=== PATIENT | male | born 1965 | race Caucasian/White ===

== ENCOUNTER 2024-03-11 06:25 | Inpatient (IN) ==
--- NOTE | 2024-03-01 15:33 | PAT Medication Instructions ---
Medication Instructions Date of Service March 01, 2024 Home Medications Medical Marijuana 1 unit inhalation UD PRN Pain (Scale Score 1-3) aspirin 81 mg capsule 81 mg PO QPM atorvastatin 40 mg tablet 20 mg PO QPM ASK your prescriber and surgeon aspirin 81 mg capsule 81 mg PO QPM DO NOT take the morning of surgery Medical Marijuana 1 unit inhalation UD PRN Pain (Scale Score 1-3) Take evening before surgery atorvastatin 40 mg tablet 20 mg PO QPM Medical Marijuana 1 unit inhalation UD PRN Pain (Scale Score 1-3) (if needed) OTHERWISE NOTHING TO EAT OR DRINK AFTER MIDNIGHT Other Notes If you have any questions please call us at [phone] or [phone] or [phone] or [phone]
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
[~2024-03-11 06:25] MED LIST: SODIUM CHLORIDE 0.9% 250 ML IV PRN
[2024-03-11 07:15] LABS: BUN Creatinine Ratio 12.4 (10-20); Calcium 9.1 mg/dl (8.6-10.3); Creatinine Clr Calc Pharmacy 92.8 ml/min; Potassium 3.8 mmol/L (3.5-5.1)
--- NOTE | 2024-03-11 07:29 | History & Physical Bridge Note ---
Date of Service March 11, 2024 History & Physical Bridge Note I have examined the patient, reviewed the History & Physical and in the interval since the performance of the History & Physical I have noted the following changes of clinical significance: no changes noted
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
[2024-03-11] MEDS ORDERED: MIDAZOLAM HCL 1 MG/ML 2ML VIAL ONE (07:39)
[2024-03-11] MEDS ORDERED: fentaNYL citrate PF 100 MCG/2 ML VIAL ONE ×4 (07:39→10:00)
[2024-03-11] MEDS ORDERED: CISATRACURIUM BESYLATE IV SOLN 2 MG/ML 10 ML VIAL IV ONE (07:39)
[2024-03-11] MEDS ORDERED: PROPOFOL IV EMULSION 10 MG/ML 20 ML VIAL IV ONE (07:39)
[2024-03-11] MEDS: ceFAZolin 2000MG 2,000 MG/15 ML SYR IV SCH ×2 (08:52→17:58)
[2024-03-11] MEDS ORDERED: SUCCINYLCHOLINE 100MG/5ML SYR IV ONE (09:09)
[2024-03-11] MEDS: SURGICEL ABSORB HEMOSTAT 2IN X 14IN TOP ONE (09:21)
[2024-03-11] MEDS ORDERED: HEPARIN SOD (PORCINE) 1000 UNIT/ML ONE ×2 (10:36→13:31)
[2024-03-11] MEDS ORDERED: HYDROmorphone INJ 2 MG/ML SYR/VIAL ONE (10:58)
[2024-03-11] MEDS: GELATIN SPONGE SZ 100 ONE (12:17)
[2024-03-11] MEDS: BUPIVACAINE/EPINEPHRINE 0.5% MPF 1:200,000 30 ML VIAL ONE (12:17)
[2024-03-11] MEDS: LIDOCAINE 1% LOCAL 20 ML VIAL ONE (12:17)
[2024-03-11] MEDS: ceFAZolin 330 MG/ML 1 GM VIAL ONE (12:43)
[2024-03-11] MEDS: HEPARIN (PORCINE) 1000 UNIT/ML 10 ML (CATH LAB USE ONLY) ONE (12:44)
[2024-03-11] MEDS: THROMBIN FOR SOLN 20000 UNIT KIT ONE (12:45)
--- NOTE | 2024-03-11 12:52 | Post Operative Brief Note ---
Immediate Post Op Note Date of Surgery March 11, 2024 Pre & Post Diagnosis Operation Date: 03/11/24 08:00 Pre-Op Diagnosis: Aortoiliac occlusive disease with claudication; Peripheral arterial disease with claudication Post-Op Diagnosis: Aortoiliac occlusive disease with claudication; Peripheral arterial disease with claudication I identified the patient and participated in the time-out.: Yes Procedure Operation Date: 03/11/24 08:00 Actual Procedures p Percutaneous Transluminal Angioplasty Stenting Right External Iliac Artery, Bilateral Femoral to Above Knee Popliteal Prostethic Bypass(Bilateral) - Urban Golden MD Surgeon Urban Golden MD Legal Billing Coordinator MD Thalia L.Minarchick,PAC Estimated Blood Loss 125 Findings Consistent with Post-Op Diagnosis Drains Jackson Catheter Anesthesia Type General Complications none Disposition Accompanied Patient To Recovery: No Disposition: Recovery Room
[2024-03-11] MEDS: VISIPAQUE IV PRN (12:55)
[2024-03-11] MEDS ORDERED: GLYCOPYRROLATE 0.2 MG/ML VIAL ONE (12:56)
[2024-03-11] MEDS ORDERED: NEOSTIGMINE METHYLSULFATE 1 MG/ML 10ML VIAL ONE (12:56)
--- NOTE | 2024-03-11 13:38 | Operative Report ---
Post Operative Report Pre & Post Diagnosis Operation Date: 03/11/24 08:00 Pre-Op Diagnosis: Aortoiliac occlusive disease with claudication; Peripheral arterial disease with claudication Post-Op Diagnosis: Aortoiliac occlusive disease with claudication; Peripheral arterial disease with claudication I identified the patient and participated in the time-out.: Yes Procedure Operation Date: 03/11/24 08:00 Actual Procedures p Percutaneous Transluminal Angioplasty Stenting Right External Iliac Artery, Bilateral Femoral to Above Knee Popliteal Prostethic Bypass(Bilateral) - Urban Golden MD Surgeon Urban Golden MD Barrel Planer MD Vini Vásquez,PAC Estimated Blood Loss 125 Findings Consistent with Post-Op Diagnosis Severe stenosis of the right external iliac artery. Bilateral SFA occlusions with reconstitution of the above knee popliteal artery Specimens None Anesthesia Type General Complications None Disposition Accompanied Patient To Recovery: No Indications Oswald Hall is a pleasant 58 year old male with PMH of PAD and severe lifestyle limiting claudication and inability to walk more than 20 feet due to pain. During an aortogram several weeks ago he was found to have bilateral SFA occlusions, long segment, not suitable to endovascular intervention. After discussion of the risks and benefits the patient elected to pursue the above mentioned procedure Description of Procedure The patient was taken to the operating room and placed in the supine position. General endotracheal anesthesia was induced. The bilateral groin and bilateral leg were prepped and draped circumferentially in the usual sterile fashion. A time-out was performed. A longitudinal incision was made over the right common femoral artery with a #15 blade scalpel. Dissection was carried down through subcutaneous tissue using electrocautery followed by Metzenbaum scissions and the common femoral artery was identified. The right common femoral artery, right profunda femoris, and right SFA were controlled. A longitudinal incision was made over the left common femoral artery with a #15 blade scalpel. Dissection was carried down through subcutaneous tissue using electrocautery followed by Metzenbaum scissions and the common femoral artery was identified. The left common femoral artery, left profunda femoris, and left SFA were controlled. Using micropuncture technique, a micropuncture sheath followed by a 5Fr sheath was advanced into the left common femoral artery. A Pigtail catheter was advanced to the level of the infrarenal aorta. An aortogram was performed demonstrating severe stenosis of the right external iliac artery. The right common femoral artery was then accessed with a micropuncture needle and a 8Fr sheath was positioned. The lesion in the right external iliac was then covered using a 8mm x 60mm stent. This was then ballooned with a 8mm x 60mm balloon to 12 levon. Completion angiogram demonstrated adequate deployment. A longitudinal incision was made over the right above knee popliteal artery with a #15 blade scalpel. Dissection was carried down through subcutaneous tissue using electrocautery followed by Metzenbaum scissions and the above knee popliteal artery was identified. It was dissected free and controlled circumferentially proximally and distally. A longitudinal incision was made over the left above knee popliteal artery with a #15 blade scalpel. Dissection was carried down through subcutaneous tissue using electrocautery followed by Metzenbaum scissions and the above knee pop liteal artery was identified. It was dissected free and controlled circumferentially proximally and distally. The right and left tunnel were created anatomically and a 6mm rPTFE graft was passed through each tunnel bilaterally. Patient was systemically heparinized with a goal ACT of > 200. Following heparin administration the left common femoral, SFA, and profunda arteries were clamped in order. The proximal anastomosis on the left was completed using running 6-0 Prolene suture to the left HEATING SYSTEMS INSTALLER. The distal anastomosis was then completed as well. Adequate flushing was performed prior to completion demonstrating generous backbleeding. All vessels were unclamped. Following completion, the left bypass was hemostatic. There was a good pulse in the bypass and in the left foot. The Right common femoral, SFA, and profunda arteries were clamped in order. The proximal anastomosis on the right was completed using running 6-0 Prolene suture to the right HEATING SYSTEMS INSTALLER. The distal anastomosis was then completed as well. Adequate flushing was performed prior to completion demonstrating generous backbleeding. Following completion, the right bypass was hemostatic. There was a good pulse in the bypass and in the right foot. At completion, vessels were unclamped and there was an excellent Doppler signal throughout the proximal and distal bypass as well as the foot. The wounds were closed with interrupted 2-0 Vicryl sutures followed by 3-0 running subcutaneous Vicryl sutures. The skin was closed with ale. Patient awoke without complications and tolerated the procedure well Dr. Golden was present and scrubbed for the entire procedure. I attest to the content of the Intraoperative Record and any orders documented therein. Any exceptions are noted below. Supervising Physician Co-Signing Physician Notes Urban Golden MD
[2024-03-11] MEDS ORDERED: NALOXONE HCL 0.4 MG/1 ML VIAL/CARP IV PRN (13:45)
[2024-03-11] MEDS: HYDROmorphone INJ 1 MG/ML SYRINGE IV PRN (13:45)
[2024-03-11] MEDS ORDERED: ePHEDrine sulfate 50 MG/ML AMP IV PRN (13:45)
[2024-03-11] MEDS ORDERED: ONDANSETRON INJ 2 MG/ML 2 ML VIAL IV PRN (13:45)
[2024-03-11] MEDS ORDERED: LABETALOL HCL IV 5 MG/ML 20ML IV PRN (13:45)
[2024-03-11] MEDS ORDERED: fentaNYL citrate PF 100 MCG/2 ML VIAL IV PRN (13:45)
[2024-03-11] MEDS ORDERED: PROMETHAZINE HCL 6.25 MG in SODIUM CHLORIDE 0.9% 50 ML IV PRN (13:45)
[2024-03-11] MEDS ORDERED: ATROPINE SULFATE 0.1 MG/ML 10ML SYR IV PRN (13:45)
[2024-03-11] MEDS ORDERED: FLUMAZENIL 0.1 MG/1 ML 10 ML VIAL IV PRN (13:45)
[2024-03-11 14:17] LABS: Basophils # (auto) 0.03 K/uL (0.00-0.20); Basophils % (auto) 0.3 %; Hemoglobin 11.9 g/dl (14.0-18.0); Immature Granulocytes # (auto) 0.04 K/uL (0.01-0.20); Immature Granulocytes % (auto) 0.4 %; Lymphocytes # (auto) 2.34 K/uL (1.20-3.40); Lymphocytes % (auto) 24.5 %; Mean Corpuscular Hemoglobin 33.6 pg (25.0-34.0); Mean Platelet Volume 10.1 fL (9.4-12.4); Monocytes # (auto) 0.58 K/uL (0.11-0.59); Monocytes % (auto) 6.1 %; Neutrophils # (auto) 6.45 K/uL (1.40-6.50); Neutrophils % (auto) 67.7 %; Platelet Count 144 K/uL (130-400); RDW Coefficient of Variation 13.1 % (11.5-14.5); RDW Standard Deviation 45.6 fL (36.4-46.3); Red Blood Count 3.54 M/uL (4.70-6.10); White Blood Count 9.54 K/ul (4.8-10.8)
--- NOTE | 2024-03-11 15:13 | Anesthesiology Progress Note ---
Date of Service March 11, 2024 Anesthesia Post Procedure Vital Signs Vital Signs: Temp Pulse Pulse Resp BP BP BP 03/11/24 14:45 63 13 123/60 03/11/24 14:35 66 12 120/55 L 03/11/24 14:25 75 13 118/58 L 03/11/24 14:15 59 L 15 106/53 L 03/11/24 14:05 58 L 14 103/50 L 03/11/24 13:55 70 12 118/54 L 03/11/24 13:45 93 H 14 144/64 H 03/11/24 13:35 96.8 F L 81 21 138/59 L 129/86 03/11/24 06:55 03/11/24 06:55 97.9 F 83 18 136/90 156/85 H Pulse Ox O2 Del Method O2 Flow Rate 03/11/24 14:45 100 Nasal Cannula 2 03/11/24 14:35 96 Nasal Cannula 2 03/11/24 14:25 98 Oxymask 2 03/11/24 14:15 100 Oxymask 4 03/11/24 14:05 100 Oxymask 4 03/11/24 13:55 97 Oxymask 6 03/11/24 13:45 99 Oxymask 8 03/11/24 13:35 100 Oxymask 8 03/11/24 06:55 Room Air 03/11/24 06:55 97 Room Air Pain Intensity Back: Pain Intensity: 6 Left Leg: Pain Intensity: 4 Transfer of Care Handoff Completed per policy Notes Mental Status: alert / awake / arousable and participated in evaluation Patient Amnestic to Procedure: Yes Nausea / Vomiting: adequately controlled Pain: adequately controlled Airway Patency, RR, SpO2: stable & adequate BP & HR: stable & adequate Hydration State: stable & adequate Anesthetic Complications: no major complications apparent and Pt Satisfied with anesthetic care
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
[2024-03-11] MEDS: MoRPHine SULFATE 4 MG/ML 1 ML CARP\\VIAL IV PRN (17:56)
[2024-03-11] MEDS: ATORVASTATIN 20 MG TAB PO SCH (21:18)
[2024-03-11] MEDS: ASPIRIN 81 MG ECTAB PO SCH (21:18)
[2024-03-11] MEDS: oxyCODONE/ACETAMINOPHEN 5mg/325mg TAB PO PRN (21:19)
[2024-03-11] MEDS: LACTATED RINGER'S 1,000 ML IV SCH (22:26)
[2024-03-12 05:10] LABS: Basophils # (auto) 0.02 K/uL (0.00-0.20); Basophils % (auto) 0.3 %; Eosinophils # (auto) 0.09 K/uL (0.00-0.50); Eosinophils % (auto) 1.3 %; Hematocrit (blood only) 29.9 % (42.0-52.0); Hemoglobin 10.7 g/dl (14.0-18.0); Immature Granulocytes # (auto) 0.02 K/uL (0.01-0.20); Immature Granulocytes % (auto) 0.3 %; Lymphocytes # (auto) 1.65 K/uL (1.20-3.40); Lymphocytes % (auto) 23.3 %; Mean Corpuscular Hemoglobin 34.2 pg (25.0-34.0); Mean Corpuscular Hgb Conc 35.8 g/dL (32.0-36.0); Mean Corpuscular Volume 95.5 fL (80.0-100.0); Mean Platelet Volume 10.7 fL (9.4-12.4); Monocytes # (auto) 0.51 K/uL (0.11-0.59); Monocytes % (auto) 7.2 %; Neutrophils # (auto) 4.79 K/uL (1.40-6.50); Neutrophils % (auto) 67.6 %; Platelet Count 138 K/uL (130-400); RDW Coefficient of Variation 13.1 % (11.5-14.5); RDW Standard Deviation 45.3 fL (36.4-46.3); Red Blood Count 3.13 M/uL (4.70-6.10); White Blood Count 7.08 K/ul (4.8-10.8)
[2024-03-12 05:16] LABS: Calcium 8.3 mg/dl (8.6-10.3); Creatinine Clr Calc Pharmacy 110.1 ml/min; Potassium 3.6 mmol/L (3.5-5.1)
[2024-03-12 08:38] VITALS: TEMP 98.4
--- NOTE | 2024-03-12 10:16 | Surgery Progress Note ---
Date of Service March 12, 2024 Assessment & Plan (1) Superficial femoral artery occlusion: Plan: Pt now POD #1 after BLE fem-AK pop prosthetic bypasses. Doing well post op. Pt wishes to go home, however, recommended 1 more night in hospital. Pt has not yet ambulated, and his marcano catheter has not been removed. Also hgb is decreased to 10 from 14 preop. Pt asymptomatic, but would like to reeval tomorrow AM. If labs acceptable, pt voids and ambulates today, will d/c home tomorrow. Pt agreeable to this plan. (2) Iliac artery stenosis, right: Plan: Now s/p R external iliac artery stent. See above. Admission and Anticipated Discharge Date Admission Date: March 11, 2024 Subjective 58 yo m POD #1 after BL fem-AK pop prosthetic BPG and R external iliac stent, seen in f/u today. Pt states feeling generally well, just tired and some discomfort from marcano catheter. Has not been OOB yet. Wishes to go home. No other complaints. Taking PO well, pain controlled. Review of Systems Review of Systems: All systems reviewed & are unremarkable except as noted in HPI & below Physical Exam Constitutional: WD/WN, vitals as above cooperative; not in distress Respiratory: normal respiratory effort, lungs clear to auscultation Auscultation: + diminished lung sounds Cardiovascular: Rate/Rhythm: regular rate and regular rhythm Vessels: posterior tibial pulses present (+2 BLE) and dorsalis pedis pulses present (+1 RLE, +3 LLE); + abnormal peripheral pulses Extremities: normal capillary refill Gastrointestinal (Abdomen): Inspection/Auscultation: abdomen normal to inspection and normal bowel sounds Percussion/Palpation: abdomen soft; abdomen nontender Musculoskeletal: no cyanosis or clubbing, extremities motor strength 5/5 Skin: no rashes, warm and dry + incision (groin and lower thigh incisions C/D/I with staple. ) Neurologic: moves all extremities and awake; no focal motor deficits and not confused Psychiatric: A+Ox3, euthymic affect Results & Data Vital Signs (Past 12 Hours) Vital Signs Temp Pulse Resp Pulse Ox Pulse Ox O2 Del Method O2 Del Method 03/12/24 08:18 67 17 94 Room Air 03/12/24 08:00 36.9 C 03/12/24 07:36 Room Air 03/12/24 07:00 68 16 95 03/12/24 05:09 62 11 L 98 03/12/24 04:27 58 L 11 L 95 03/12/24 03:06 59 L 15 97 03/12/24 02:09 54 L 18 97 03/12/24 01:12 66 15 98 03/12/24 00:00 54 L 11 L 98 03/11/24 23:59 95 Room Air 03/11/24 23:42 91 H 17 96 03/11/24 23:00 60 11 L 99 03/11/24 22:33 87 15 97
--- NOTE | 2024-03-12 17:17 | Critical Care Progress Note ---
Date of Service March 12, 2024 Assessment & Plan (1) Peripheral vascular disease: (2) Hypertension: Plan 58-year-old male postop day 1 status post bilateral femoral popliteal bypass surgery. Patient is doing well. He has had a drop in his hemoglobin likely hemodilutional. No hemodynamic issues at present. Pain is well-controlled. No critical care needs at this time. ICU services to sign off. Thank you for the consult. Admission and Anticipated Discharge Date Admission Date: March 11, 2024 Subjective Patient postop day #1 after bilateral femoropopliteal prosthetic bypass. Notes some mild abdominal pain and decreased appetite. Overall he is doing well and desires to go home. Denies any fevers or chills. Seen by vascular surgery millicent ma today. Her line has been removed. Review of Systems Review of Systems: All systems reviewed & are unremarkable except as noted in HPI & below Physical Exam Physical Exam: Constitutional: Patient appears to be of their stated age. Patient is in no apparent distress. Patient is well-developed. Eyes: Pupils are equal round and reactive to light. Conjunctivae are normal. Anicteric sclera. Ears nose, mouth and throat: Deferred. Neck: Trachea is midline. Visual inspection is normal. Respiratory: Clear to auscultation bilaterally. No use of accessory muscles. No significant clubbing noted. Cardiovascular: Regular rate and rhythm. No murmurs. Distal pulses intact based on Doppler. Gastrointestinal: Abdomen is firm and tense. Minimal bowel sounds. Musculoskeletal: No cyanosis. Patient is able to move all extremities. Strength is 5 out of 5 in the upper and lower extremities. Skin: No rashes, warm dry and intact. Neurologic: No obvious focal neurological deficits seen. Psychiatric: Alert and oriented x3 with a euthymic affect. Results & Data Results & Data Vital Signs (Past 12 Hours) Vital Signs Temp Pulse Resp BP Pulse Ox O2 Del Method O2 Del Method 03/12/24 16:35 36.9 C 03/12/24 16:18 91 H 20 93 Room Air 03/12/24 16:00 139/78 03/12/24 16:00 Room Air 03/12/24 15:54 89 15 96 Room Air 03/12/24 15:00 111/69 03/12/24 15:00 111/69 03/12/24 15:00 61 14 03/12/24 14:03 52 L 19 99 03/12/24 14:00 111/76 03/12/24 14:00 111/76 03/12/24 13:51 64 9 L 100 03/12/24 13:06 56 L 17 97 03/12/24 13:00 120/75 03/12/24 13:00 120/75 03/12/24 13:00 120/75 03/12/24 12:57 91 H 18 98 03/12/24 12:15 36.8 C 03/12/24 12:09 88 18 151/81 H 94 Room Air 03/12/24 11:32 137/74 03/12/24 11:32 137/74 03/12/24 11:21 59 L 22 03/12/24 10:24 140/92 03/12/24 10:18 76 15 03/12/24 10:00 81 23 98 03/12/24 09:06 68 16 97 03/12/24 08:18 67 17 94 Room Air 03/12/24 08:00 36.9 C 03/12/24 07:36 Room Air 03/12/24 07:00 68 16 95 Coding Level of Care Code 41273 SUB INP/OBS CARE 06/15MIN Diagnoses Peripheral vascular disease I73.9 Hypertension I10
[2024-03-13 08:11] VITALS: RESP 13; O2SAT 94
[2024-03-13 08:37] LABS: Hematocrit (blood only) 30.5 % (42.0-52.0)
[2024-03-13 08:51] VITALS: BP 129/86; PULSE 60
--- NOTE | 2024-03-13 10:40 | Surgery Progress Note ---
Date of Service March 13, 2024 Assessment & Plan (1) Superficial femoral artery occlusion: Plan: Pt now POD #2 after BLE fem-AK pop prosthetic bypasses. Doing well post op. OK for d/c home today. (2) Iliac artery stenosis, right: Plan: Now s/p R external iliac artery stent. See above. Admission and Anticipated Discharge Date Admission Date: March 11, 2024 Subjective 58 yo m POD #2 after BL fem-AK pop bypasses and R ilaic stent, seen in f/u today. Pt states feeling overall well. Admits some pain in incisions, but otherwise feeling good. No other complaints. Review of Systems Review of Systems: All systems reviewed & are unremarkable except as noted in HPI & below Physical Exam Constitutional: WD/WN, vitals as above cooperative; not in distress Respiratory: normal respiratory effort, lungs clear to auscultation Auscultation: + diminished lung sounds Cardiovascular: Rate/Rhythm: regular rate and regular rhythm Vessels: posterior tibial pulses present (+2 BLE) and dorsalis pedis pulses present (+1 RLE, +3 LLE); + abnormal peripheral pulses Extremities: normal capillary refill Gastrointestinal (Abdomen): Inspection/Auscultation: abdomen normal to inspection and normal bowel sounds Percussion/Palpation: abdomen soft; abdomen nontender Musculoskeletal: no cyanosis or clubbing, extremities motor strength 5/5 Skin: no rashes, warm and dry + incision (groin and lower thigh incisions C/D/I with staple. ) Neurologic: moves all extremities and awake; no focal motor deficits and not confused Psychiatric: A+Ox3, euthymic affect Results & Data Vital Signs (Past 12 Hours) Vital Signs Temp Pulse Pulse Resp BP BP BP 03/13/24 08:49 36.9 C 60 13 116/50 L 129/86 03/13/24 08:00 37.0 C 03/13/24 08:00 100 H 03/13/24 07:03 95 H 13 03/13/24 07:01 139/85 03/13/24 06:00 149/80 H 03/13/24 06:00 149/80 H 03/13/24 05:06 77 11 L 03/13/24 05:00 127/90 03/13/24 04:54 80 12 03/13/24 04:39 87 13 03/13/24 03:00 118/78 03/13/24 03:00 66 9 L 03/13/24 02:03 80 13 03/13/24 02:00 136/97 03/13/24 02:00 136/97 03/13/24 02:00 136/97 03/13/24 01:48 84 18 03/13/24 01:00 116/71 03/13/24 01:00 116/71 03/13/24 01:00 75 13 03/13/24 00:03 68 16 03/13/24 00:00 116/68 03/13/24 00:00 116/68 03/12/24 23:59 03/12/24 23:45 67 15 03/12/24 23:06 66 15 Pulse Ox Pulse Ox O2 Del Method O2 Del Method 03/13/24 08:49 94 03/13/24 08:00 03/13/24 08:00 03/13/24 07:03 94 Room Air 03/13/24 07:01 03/13/24 06:00 03/13/24 06:00 03/13/24 05:06 92 03/13/24 05:00 03/13/24 04:54 93 03/13/24 04:39 93 03/13/24 03:00 03/13/24 03:00 03/13/24 02:03 95 03/13/24 02:00 03/13/24 02:00 03/13/24 02:00 03/13/24 01:48 95 03/13/24 01:00 03/13/24 01:00 03/13/24 01:00 98 03/13/24 00:03 96 03/13/24 00:00 03/13/24 00:00 03/12/24 23:59 95 Room Air 03/12/24 23:45 95 03/12/24 23:06 95
--- NOTE | 2024-03-14 13:46 | Discharge Summary ---
Date of Service March 14, 2024 Admission HPI Per Admitting Provider Name: KRISHNA MARRERO Patient Number: [id number] : 1965 Date of Service: 02/29/2024 Chief Complaint: _Follow-up after angiogram HPI: _Mr. Marrero is an elderly male who presents to Dr. Golden's vascular surgery clinic today for a 2-week follow-up visit after undergoing an aortogram with runoff without intervention due to severe aortoiliac and peripheral arterial disease. Patient continues to complain of calf discomfort with ambulation, stating that he walks very slow he could probably walk about 75-100 yards, however, if he walks at a normal pace he would not make it 20 yds. He states after resting for 2 to 5 minutes, he is able to ambulate again. He feels that his left leg is worse than his right, as it starts earlier and the discomfort is more severe. Additionally he has a tenderness to his calves bilaterally which is present almost 24 hours a day. He denies rest pain in his feet, but states that he does have tingling when he lies down at night. He denies any nonhealing wounds or ulcerations or discoloration of the feet or toes. Patient's aortogram with runoff demonstrated a right iliac artery occlusion, bilateral SFA occlusions, and a severe left common femoral artery stenosis. Current Home Meds: (Last Updated 02/28 13:02) aspirin (aspirin 81 mg oral tablet, chewable) 81 mg PO Daily atorvastatin (atorvastatin 40 mg oral tablet) 20 mg PO Daily Allergies and Sensitivities: NKA Past Medical History: Problems: (atherosclerosis) OBJECTIVE Vitals: Last Updated 02/29/24 13:01 Date Temp BP Location Pulse RR SpO2 Pain 02/29/24 0 02/29/24 146/76 Right Arm 67 98 01/31/24 144/80 Right Arm 0 Vital Signs are the last 3 documented. No Orthostatic Data Available Height and Weight: Last Updated 01/31/24 08:03 Date BMI Wt(kg) Wt(lb) Method Ht(cm) (ft-in) Method 01/31/24 70.8 156 Standing Scale Heights and Weights are the last 3 documented. Physical Exam Constitutional: In general patient is a healthy-appearing well-nourished well- developed elderly male no distress. Is alert and oriented without focal deficits. Lungs are clear. Heart has a regular rate and rhythm. Abdominal exam is benign. His right femoral pulse is +1, left femoral pulse is +2. Lower extremities a pulses are nonpalpable. His capillary refill is 4 to 5 seconds. There are no ulcerations. ASSESSMENT: _ PLAN: _ 1 ) _aortoiliac occlusive disease with claudication Patient does have life limiting claudication symptoms, which are likely related to his significant arterial insufficiency. His imaging did demonstrate a rather extensive disease, which unfortunately can only be addressed with open bypass surgery. Patient was discussed with Dr. Golden, who recommends that patient consider undergoing a an attempt at right iliac stent placement, possible left to right femorofemoral bypass, possible bilateral femoral to above-knee popliteal artery prosthetic bypasses. The procedure, benefits, and alternatives was discussed at length with the patient. The risks of the surgery, including but not limited to bleeding, infection, blood clots, vessel trauma, loss of part of the foot or leg, exposure to x-ray radiation, allergic reaction to medication or dye, myocardial infarction, and were discussed at length with the patient by myself at Dr. Golden's request. Patient expresses understanding and agreement to proceed. While the patient does not have any history of cardiac issues, we do recommend that he undergo a stress echo for evaluation, as he is undergoing rather extensive open surgery that will require general anesthesia. Patient is agreeable this plan. He is advised to call with any other questions. 2 ) _peripheral arterial disease with claudication See above Thank you for letting us participate in the care of this patient. I have personally spent_29__ minutes performing cqpi-cw-nala and mvu-gzmq-bq-face activities on this date of service.Time does not include separately reported services. Activities Include: _x_ review of the medical record _x_ obtaining a history _x_ physical exam/evaluation __ review labs x__ review radiology reports _x_ counseling/educating patient/family/caregiver __ discussion/referral to other healthcare professional _x_ documenting care in the medical record __ independent interpretation of results _ communication of results to patient/family/caregiver _x_ coordination of care Signature Line Electronic Signature on File CC: Christi Lombardi MD [address] [address] * Electronically Reviewed/Signed by: Vika Marcus PA-C Author Signature Dt/Tm:02/29/2024 02:36 PM [facility] [address], [address] [place] [address] LM Result Type: HVI Outpt Note Date of Service: February 29, 2024 14:27 EDT Authorization Status: Final Author or Import Date: JONO Marcus Lynn on February 29, 2024 14:36 EDT Verified By: JONO Marcus Lynn on February 29, 2024 14:36 EDT Encounter info: [id number], [place] [address], Clinic, 02/29/2024 - 02/29/2024 Admission Exam Per Admitting Provider Constitutional: In general patient is a healthy-appearing well-nourished well- developed elderly male no distress. Is alert and oriented without focal deficits. Lungs are clear. Heart has a regular rate and rhythm. Abdominal exam is benign. His right femoral pulse is +1, left femoral pulse is +2. Lower extremities a pulses are nonpalpable. His capillary refill is 4 to 5 seconds. There are no ulcerations. Principal Diagnosis Right external iliac artery stenosis and bilateral superficial femoral artery occlusions Discharge Exam Constitutional WD/WN, vitals as above cooperative; not in distress Respiratory normal respiratory effort, lungs clear to auscultation Auscultation: + diminished lung sounds Cardiovascular Rate/Rhythm: regular rate and regular rhythm Vessels: posterior tibial pulses present (+2 BLE) and dorsalis pedis pulses present (+1 RLE, +3 LLE); + abnormal peripheral pulses Extremities: normal capillary refill Gastrointestinal (Abdomen) Inspection/Auscultation: abdomen normal to inspection and normal bowel sounds Percussion/Palpation: abdomen soft; abdomen nontender Musculoskeletal no cyanosis or clubbing, extremities motor strength 5/5 Skin no rashes, warm and dry + incision (groin and lower thigh incisions C/D/I with staple. ) Neurologic moves all extremities and awake; no focal motor deficits and not confused Psychiatric A+Ox3, euthymic affect Discharge Data Allergies Allergy/AdvReac Type Severity Reaction Status Date / Time No Known Allergies Allergy Verified 03/11/24 06:54 Consultations 03/11/24 15:34 Consult Gas Distribution Supervisor Routine Procedures Performed Operation Date: 03/11/24 08:00 Actual Procedures p Percutaneous Transluminal Angioplasty Stenting Right External Iliac Artery, Bilateral Femoral to Above Knee Popliteal Prostethic Bypass(Bilateral) - Urban Golden MD Ordered Studies 03/11/24 07:05 EV angio LE BI Routine Hospital Course (1) Superficial femoral artery occlusion: Pt now POD #2 after BLE fem-AK pop prosthetic bypasses. Doing well post op. OK for d/c home today. (2) Iliac artery stenosis, right: Now s/p R external iliac artery stent. See above. Total Time Total Time Spent Total Time Spent (In Minutes): x Discharge Plan Discharge Items Patient Disposition: Home - Self-Care Reason For Visit: Aortoiliac Occlusive Disease Discharge Diagnosis: 1. s/p BL femoral to above knee popliteal prosthetic bypasses, R external iliac artery stent 2. Aortoiliac occlusive disease 3. BL SFA occlusions Activity: Per Instructions section Lifting: No more than 10 pounds Non-emergency contact: Primary Care Provider and Surgeon Call non-emergency contact if: you have any medication questions, your symptoms worsen, your pain is not controlled, your pain is concerning for you, you have a fever, your wound has increased redness and your wound has increased drainage Follow-up/Referrals: Urban Golden MD [Physician] - (Follow up with Dr Golden or Vika Marcus PA-C, in 2 weeks for staple removal.) Christi Lombardi MD [Primary Care Provider] - (Follow up with your PCP within 2 weeks) Diet: Heart Healthy Addtl Attending Provider Instructions: ACTIVITY RECOMMENDATIONS: See Above SPECIAL CARE INSTRUCTIONS: 1. No lifting more than 10 lbs for 6 weeks. Other activity as tolerated. 2. May drive if R groin pain minimal and no longer taking oxycodone for pain(usually 1 week). 3. May shower and dry incisions thoroughly, NO soaking tub baths 4. No dressings required to incisions unless drainage present. 5. Additional prescription for apixaban 5mg by mouth twice a day will also be called into your pharmacy by Dr Golden's office. There was a glitch in the hospital computer system and the script is unable to send. Call your doctor if: * Temperature above 101 degrees * Pain not relieved by pain medicine ordered * There is increased drainage or redness from any incision * You have any unanswered questions or concerns. Pending Studies at Discharge: No Stand-Alone Forms: My [facility], Smoking Cessation Medications and DC Order Prescriptions: New oxycodone-acetaminophen [Percocet] 5-325 mg Tablet 1 - 2 tab PO Q6H PRN (Reason: pain) Qty: 30 0RF clopidogrel [Plavix] 75 mg tablet 75 mg PO DAILY Qty: 30 0RF Continued Medical Marijuana 1 unit 1 unit inhalation UD PRN (Reason: Pain (Scale Score 1-3)) atorvastatin 40 mg Tablet 20 mg PO QPM aspirin 81 mg Capsule 81 mg PO QPM Discharge Orders: Discharge Order (Routine); Ordered 03/13/24 Ordered By: Vika Marcus Admission Data Admit Date/Time: 03/11/24 07:31 Attending Provider: Urabn Golden Admit Provider: Urban Golden Primary Care Provider: Christi Lombardi Other Providers: Hubret Dasilva; Gurjit Leyva Other Interventions: Discharge Summary Assessment (RN) Last Done: 03/13/24 08:49
== END 2024-03-13 11:16 | disposition home or self-care (01) | DRG 253 ==
LOC: ASU 06:25 → 1E 07:31